=== PATIENT | male | born 1970 | race Caucasian/White ===

== ENCOUNTER 2021-08-09 09:17 | Emergency (ER) | payer SELFPAY ==
[2021-08-09] MEDS ORDERED: NA CHLORIDE 0.9% 1,000 ML ONE ×2 (09:51→11:55)
[2021-08-09 09:53] LABS: Absolute Lymphocytes (CBC) 1.1 K/uL (0.7-4.9); Hematocrit 42.3 % (39.6-49.0); Lymphocytes % 20.2 % (15.3-44.8); MPV 8.3 fL (7.6-11.3)
[2021-08-09 10:17] LABS: Urine Blood Trace-intact (Negative); Urine Glucose Negative (Negative); Urine Protein 2+ (Negative); Urine Specific Gravity >=1.030 (1.005-1.030)
[2021-08-09 10:19] LABS: Potassium 3.9 mmol/L (3.5-5.1); Troponin High Sensitivity 6.2 pg/mL (<58.9)
[2021-08-09 10:25] LABS: Platelet Estimate ADEQ
[2021-08-09 10:26] LABS: Protime INR 1.04
[2021-08-09 10:26] LABS: Blood Morphology Comment NOT SEEN (NOT SEEN)
--- NOTE | 2021-08-09 10:26 | RAD REPORT ---
EXAM DESCRIPTION: CT - Head Brain Wo Cont - 08/09/2021 10:12 am CLINICAL HISTORY: Headache COMPARISON: No comparisons TECHNIQUE: Axial 5 mm thick images of the head were obtained without IV contrast. All CT scans are performed using dose optimization technique as appropriate and may include automated exposure control or mA/KV adjustment according to patient size. FINDINGS: No intracranial hemorrhage, mass, edema or shift of mid-line structures. No acute infarcti on changes seen. No abnormal extra-axial fluid collections. Ventricles are normal. Mastoid air cells and visualized portions of the paranasal sinuses are clear. No acute bony findings. IMPRESSION: Negative non-contrast CT head examination.
[2021-08-09 10:32] LABS: Barbiturates NEGATIVE (NEGATIVE); Benzodiazepines NEGATIVE (NEGATIVE); Cocaine NEGATIVE (NEGATIVE); METHAMPHETAM NEGATIVE (NEGATIVE); Methadone NEGATIVE (NEGATIVE); Opiates NEGATIVE (NEGATIVE); Phencyclidine NEGATIVE (NEGATIVE); THC Cannibis NEGATIVE (NEGATIVE)
--- NOTE | 2021-08-09 10:44 | RAD REPORT ---
EXAM DESCRIPTION: RAD - Chest Single View - 08/09/2021 10:18 am CLINICAL HISTORY: CHEST PAIN COMPARISON: None TECHNIQUE: AP portable chest image was obtained 08/09/2021 10:18 am . FINDINGS: Lungs are clear of an acute infiltrate or suspicious mass. Small granulomata noted. No hil a mass or lymphadenopathy seen. No fullness of the mediastinum. Heart and vasculature are normal. No measurable pleural effusion and no pneumothorax. No acute bony abnormality seen. No acute aortic find ings suspected. IMPRESSION: No acute cardiopulmonary process.
[2021-08-09 10:52] LABS: ALT/SGPT 17 U/L (12-78); AST/SGOT 18 U/L (15-37); Albumin 3.2 g/dL (3.4-5.0); Alkaline Phosphatase 75 U/L (45-117); Bilirubin Direct 0.2 mg/dL (0-0.2); Bilirubin Total 0.4 mg/dL (0.2-1.0); Protein, Total 6.6 g/dL (6.4-8.2)
--- NOTE | 2021-08-09 12:32 | ER ---
Nurse's Notes [facility] Name: Dar Moore Age: 51 yrs Sex: Male : 1970 Arrival Date: 08/09/2021 Time: 09:22 Bed 7 Private MD: Diagnosis: Dehydration Presentation: 08/09 09:22 Chief complaint: Patient states: "pt is reporting being outside for 5 days with nothing jd3 to eat or drink. he is reporting general weakness and and dizziness. he also is reporting pain with his head, back, and right side of his stomach.". Coronavirus screen: At this time, the client does not indicate any symptoms associated with coronavirus-19. Ebola Screen: No symptoms or risks identified at this time. Initial Sepsis Screen: Does the patient meet any 2 criteria? No. Patient's initial sepsis screen is negative. Does the patient have a suspected source of infection? No. Patient's initial sepsis screen is negative. Risk Assessment: Do you want to hurt yourself or someone else? Patient reports no desire to harm self or others. Onset of symptoms was August 09, 2021. 09:22 Method Of Arrival: Ambulatory jd3 09:22 Acuity: LARA 3 jd3 Historical: - Allergies: 09:24 No Known Allergies; jd3 - Home Meds: 09:24 None [Active]; jd3 - PMHx: 09:24 None; jd3 - PSHx: 09:24 None; jd3 - Immunization history:: Adult Immunizations unknown, Client reports having NOT received the Covid vaccine. - Social history:: Smoking status: Patient reports the use of cigarette tobacco products. Screenin:38 Abuse screen: Denies threats or abuse. Nutritional screening: No deficits noted. jd3 Tuberculosis screening: No symptoms or risk factors identified. Fall Risk Ambulatory Aid- None/Bed Rest/Nurse Assist (0 pts). Gait- Normal/Bed Rest/Wheelchair (0 pts) Mental Status- Oriented to own ability (0 pts). Total Mendenhall Fall Scale indicates No Risk (0-24 pts). Assessment: 09:37 General: Appears in no apparent distress. comfortable, Behavior is calm, cooperative, jd3 appropriate for age. Pain: Complains of pain in head, abdomen and posterior chest Quality of pain is described as aching. Neuro: Dyer Agitation-Sedation Scale (RASS): 0 - Alert and Calm Level of Consciousness is awake, alert, obeys commands, Oriented to person, place, time, situation. Cardiovascular: Capillary refill < 3 seconds Patient's skin is warm and dry. Rhythm is regular. Respiratory: Airway is patent Respiratory effort is even, unlabored, Respiratory pattern is regular, symmetrical, Denies cough, shortness of breath. GI: Abdomen is flat, non-distended, Abd is soft and non tender X 4 quads. Reports upper abdominal pain. : No signs and/or symptoms were reported regarding the genitourinary system. EENT: No signs and/or symptoms were reported regarding the EENT system. Derm: Skin is intact, Skin is dry, Skin is normal, Skin temperature is warm. Musculoskeletal: Circulation, motion, and sensation intact. Range of motion: intact in all extremities. 10:00 Reassessment: This nurse was in the room with the patient providing him with a urinal jg9 in order to give a sample when suddenly the patient tensed up and had what appeared to be a seizure of some kind, patient was not responsive, and then about 30 sec into the activity the patient presented as very altered, he was pulling, grabbing, not making eye contact, attempting to climb out the bed, other staff heard the commotion and came in to assist. Patient started to settle down after about 1 minute, patient was awake, alert, but denied any knowledge of what just happened. Patient denied drug use and patient denied a Hx of seizures. Patient stated "why am I so lightheaded and dizzy". Patient taken to CT for scan-calm, back to a\\T\\ox 4, with GCS of 15. 10:02 Reassessment: pt with sudden AMS. pt not talking to staff and looking around room while jd3 trying to climb out of bed. this lasted about 2-3 min. pt is now talking with staff again, A\\T\\O X 4 again, resting in bed. responding appropriately at this time. 10:28 Reassessment: Patient and/or family updated on plan of care and expected duration. Pain jd3 level reassessed. Patient is alert, oriented x 3, equal unlabored respirations, skin warm/dry/pink. 11:52 Reassessment: Patient and/or family updated on plan of care and expected duration. Pain jg9 level reassessed. Patient is alert, oriented x 3, equal unlabored respirations, skin warm/dry/pink. 12:02 Reassessment: Patient appears in no apparent distress at this time. Patient and/or jd3 family updated on plan of care and expected duration. Pain level reassessed. Patient is alert, oriented x 3, equal unlabored respirations, skin warm/dry/pink. Vital Signs: 09:24 BP 115 / 103; Pulse 81; Resp 18 S; Pulse Ox 99% on R/A; Weight 72.57 kg (R); Height 5 jd3 ft. 11 in. (180.34 cm) (R); Pain 6/10; 10:27 BP 94 / 78; Pulse 73; Resp 19 S; Pulse Ox 99% on R/A; jd3 11:00 BP 121 / 78; Pulse 60; Resp 18 S; Pulse Ox 98% on R/A; jg9 11:30 BP 130 / 83; Pulse 60; Resp 12 S; Pulse Ox 96% on R/A; jg9 12:30 BP 122 / 77; Pulse 66; Resp 17 S; Pulse Ox 95% on R/A; jg9 09:24 Body Mass Index 22.32 (72.57 kg, 180.34 cm) jd3 ED Course: 09:22 Patient arrived in ED. jd3 09:23 Triage completed. jd3 09:24 Yonatan Shannon NP is PHCP. pm1 09:24 Ernesto Tejeda MD is Attending Physician. pm1 09:24 Arm band placed on. jd3 09:30 Inserted saline lock: 18 gauge in right forearm, using aseptic technique. Blood jg9 collected. 09:35 Donny Escobar, DIOMEDES is Primary Nurse. jd3 09:36 EKG done, by ED staff, reviewed by Yonatan Shannon NP. jd3 09:38 Patient has correct armband on for positive identification. Bed in low position. Call [facility] light in reach. Side rails up X 1. Client placed on continuous cardiac and pulse oximetry monitoring. NIBP monitoring applied. desk monitor on. Pulse ox on. NIBP on. 10:14 CT Head Brain wo Cont In Process Unspecified. EDMS 10:19 XRAY Chest (1 view) In Process Unspecified. EDMS 10:35 No apparent distress. Resting quietly. Patient requests food. jg9 10:35 Diet tray given. jg9 11:07 No apparent distress. Resting quietly. jg9 12:59 No provider procedures requiring assistance completed. jg9 12:59 IV discontinued. jg9 Administered Medications: 10:02 Drug: NS 0.9% 1000 ml Route: IV; Rate: 1000 ml; Site: left antecubital; jd3 11:00 Follow up: Response: No adverse reaction; IV Status: Completed infusion jd3 11:51 Drug: NS 0.9% 1000 ml Route: IV; Rate: 1000 ml; Site: left antecubital; jd3 13:00 Follow up: IV Status: Completed infusion; IV Intake: 1000ml jg9 Medication: 09:38 VIS not applicable for this client. jd3 Intake: 13:00 IV: 1000ml; Total: 1000ml. jg9 Outcome: 12:32 Discharge ordered by . pm1 12:59 Discharged to home ambulatory. jg9 12:59 Condition: stable 12:59 Discharge instructions given to patient, Instructed on discharge instructions, follow up and referral plans. Demonstrated understanding of instructions, follow-up care. 13:00 Patient left the ED. jg9 Signatures: Dispatcher [employer] EDMS Yonatan Shannon NP [employer] pm1 Donny Escobar RN RN jd3 Francisca Kay RN RN jg9
--- NOTE | 2021-08-09 12:32 | EDPHYS ---
Physician Documentation [facility] Name: Dar Moore Age: 51 yrs Sex: Male : 1970 Arrival Date: 08/09/2021 Time: 09:22 Bed 7 Private MD: ED Physician Ernesto Tejeda HPI: 08/09 09:38 This 51 yrs old Male presents to ER via Ambulatory with complaints of General Weakness. pm1 09:38 The patient presents to the emergency department with weakness of the entire body, pm1 generalized weakness. Onset: The symptoms/episode began/occurred 5 day(s) ago. Context: occurred outdoors. Associated signs and symptoms: Pertinent positives: Hunger and thirst. Severity of symptoms: in the emergency department the symptoms are worse. Current symptoms: Dizziness. The patient has not experienced similar symptoms in the past. The patient has not recently seen a physician. Patient walking home from [place] to [place] due to breaking up with his significant other. Patient reports hitching a ride to [place] with a stranger and was dropped off in the middle. Has been walking for the past 5 days without food or water and is complaining of dehydration and dizziness. Historical: - Allergies: 09:24 No Known Allergies; jd3 - Home Meds: 09:24 None [Active]; jd3 - PMHx: 09:24 None; jd3 - PSHx: 09:24 None; jd3 - Immunization history:: Adult Immunizations unknown, Client reports having NOT received the Covid vaccine. - Social history:: Smoking status: Patient reports the use of cigarette tobacco products. ROS: 09:38 Constitutional: Negative for fever, chills, and weight loss, Cardiovascular: Negative pm1 for chest pain, palpitations, and edema, Respiratory: Negative for shortness of breath, cough, wheezing, and pleuritic chest pain, MS/Extremity: Negative for injury and deformity, Skin: Negative for injury, rash, and discoloration. 09:38 Neuro: Positive for weakness, Generalized. 09:38 All other systems are negative. Exam: 09:38 Constitutional: This is a well developed, well nourished patient who is awake, alert, pm1 and in no acute distress. Head/Face: Normocephalic, atraumatic. 09:38 Back: No spinal tenderness. No costovertebral tenderness. Full range of motion. Skin: Warm, dry with normal turgor. Normal color with no rashes, no lesions, and no evidence of cellulitis. MS/ Extremity: Pulses equal, no cyanosis. Neurovascular intact. Full, normal range of motion. 09:38 Eyes: Exam is negative for acute changes, Extraocular movements: no acute changes. 09:38 ENT: Exam is negative for acute changes, Mouth: no acute changes, Lips: normal, moist, Oral mucosa: normal, pink and intact, moist. 09:38 Cardiovascular: Exam negative for acute changes, Rate: normal, Rhythm: regular, Pulses: no pulse deficits are appreciated. 09:38 Respiratory: Exam negative for acute changes, respiratory distress, shortness of breath. 09:38 Abdomen/GI: Exam negative for acute changes, Inspection: abdomen appears normal, Palpation: abdomen is soft and non-tender, in all quadrants. 09:38 Neuro: Exam negative for acute changes, Orientation: is normal, Mentation: is normal, Motor: is normal, moves all fours. Vital Signs: 09:24 BP 115 / 103; Pulse 81; Resp 18 S; Pulse Ox 99% on R/A; Weight 72.57 kg (R); Height 5 jd3 ft. 11 in. (180.34 cm) (R); Pain 6/10; 10:27 BP 94 / 78; Pulse 73; Resp 19 S; Pulse Ox 99% on R/A; jd3 11:00 BP 121 / 78; Pulse 60; Resp 18 S; Pulse Ox 98% on R/A; jg9 11:30 BP 130 / 83; Pulse 60; Resp 12 S; Pulse Ox 96% on R/A; jg9 12:30 BP 122 / 77; Pulse 66; Resp 17 S; Pulse Ox 95% on R/A; jg9 09:24 Body Mass Index 22.32 (72.57 kg, 180.34 cm) jd3 MDM: 09:25 Patient medically screened. pm1 10:00 Data reviewed: vital signs. Data interpreted: Pulse oximetry: on room air is 99 %. pm1 Interpretation: normal. 12:31 Counseling: I had a detailed discussion with the patient and/or guardian regarding: the pm1 historical points, exam findings, and any diagnostic results supporting the discharge/admit diagnosis, lab results, radiology results, the need for outpatient follow up, to return to the emergency department if symptoms worsen or persist or if there are any questions or concerns that arise at home. 08/09 09:38 Order name: Basic Metabolic Panel; Complete Time: 10:28 pm08/09 09:38 Order name: CBC with Diff; Complete Time: 10:28 pm08/09 09:38 Order name: Troponin HS; Complete Time: 10:28 pm08/09 09:51 Order name: UDS; Complete Time: 10:47 pm08/09 09:52 Order name: Acetaminophen; Complete Time: 11:19 pm08/09 09:52 Order name: ETOH Level; Complete Time: 11:19 pm08/09 09:38 Order name: XRAY Chest (1 view); Complete Time: 10:47 pm08/09 09:38 Order name: CT Head Brain wo Cont; Complete Time: 10:28 pm08/09 09:52 Order name: Hepatic Function; Complete Time: 11:19 pm08/09 09:52 Order name: PT-INR; Complete Time: 10:28 pm08/09 09:52 Order name: Ptt, Activated; Complete Time: 10:28 pm08/09 09:52 Order name: Salicylate; Complete Time: 11:39 pm08/09 10:17 Order name: Urine Dipstick-Ancillary; Complete Time: 10:28 EDMS 08/09 10:26 Order name: Manual Differential; Complete Time: 10:28 EDMS 08/09 09:38 Order name: EKG; Complete Time: 09:39 pm08/09 09:38 Order name: Cardiac monitoring; Complete Time: 09:38 pm08/09 09:38 Order name: EKG - Nurse/Tech; Complete Time: 09:38 pm08/09 09:38 Order name: IV Saline Lock; Complete Time: 09:38 pm08/09 09:38 Order name: Labs collected and sent; Complete Time: 09:38 pm08/09 09:38 Order name: O2 Per Protocol; Complete Time: 09:38 pm08/09 09:38 Order name: O2 Sat Monitoring; Complete Time: 09:38 pm08/09 09:38 Order name: Urine Dipstick-Ancillary (obtain specimen); Complete Time: 10:34 pm1 Administered Medications: 10:02 Drug: NS 0.9% 1000 ml Route: IV; Rate: 1000 ml; Site: left antecubital; jd3 11:00 Follow up: Response: No adverse reaction; IV Status: Completed infusion jd3 11:51 Drug: NS 0.9% 1000 ml Route: IV; Rate: 1000 ml; Site: left antecubital; jd3 13:00 Follow up: IV Status: Completed infusion; IV Intake: 1000ml jg9 Disposition: 14:30 Co-signature as Attending Physician, Ernesto Tejeda MD I agree with the assessment and kdr plan of care. Disposition Summary: 08/09/21 12:32 Discharge Ordered Location: Home pm1 Problem: new pm1 Symptoms: have improved pm1 Condition: Stable pm1 Diagnosis - Dehydration pm1 Followup: pm1 - With: Emergency Department - When: As needed - Reason: Worsening of condition Followup: pm1 - With: Private Physician - When: 2 - 3 days - Reason: Recheck today's complaints, Continuance of care, Re-evaluation by your physician Discharge Instructions: - Discharge Summary Sheet pm1 - Dehydration, Adult pm1 - Rehydration, Adult pm1 Forms: - Medication Reconciliation Form pm1 - Thank You Letter pm1 - Antibiotic Education pm1 - Prescription Opioid Use pm1 Signatures: Dispatcher [employer] EDErnesto Longoria MD MD [facility] Yonatan Shannon NP [employer] pm1 Donny Escobar RN RN jd3 Francisca Kay RN jg9
[2021-08-09 13:16] VITALS: BP 122/77; O2SAT 95
--- NOTE | 2021-08-09 19:17 | EKG ---
Test Date: 2021-08-09 Test Time: 09:30:13 [employer] Worker: MONICA MEASUREMENT RESULTS: Intervals: Rate: 75 MT: 114 QRSD: 94 QT: 354 QTc: 395 [place]: P: 71 MT: 114 QRS: 86 T: 79 INTERPRETIVE STATEMENTS: Normal sinus rhythm Normal ECG No previous ECG available for comparison Electronically Signed On 08-09-21 19:15:45 CDT by Balta Ortiz
== END 2021-08-09 13:00 | disposition home or self-care (01) ==
LOC: ER 09:17
DX: E86.0 Dehydration (principal); F17.210 Nicotine dependence, cigarettes, uncomplicated
CPT/HCPCS: 36415; 70450; 71045; 80048; 80076; 80307; 80320; 80329; 81003; 84484; 85025; 85610; 85730; 93005; 96360; 96361; 99284; J7030